=== PATIENT | male | born 2000 | race Hispanic/Latino ===

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

== ENCOUNTER 2024-10-19 22:17 | Emergency (ER) | payer SELFPAY ==
--- NOTE | 2024-10-19 22:46 | ER ---
Nurse's Notes [facility] Name: Brennon Resendiz Age: 24 yrs Sex: Male : 2000 Arrival Date: 10/19/2024 Time: 22:17 Bed 12 Private MD: Diagnosis: Insect bite (nonvenomous) of right upper arm-allergy to Presentation: 10/19 22:42 Chief complaint: Patient states: Ant bites on right arm, it is swollen and hurts to vc1 close my hand and right arm. Coronavirus screen: Client denies travel out of the [place] in the last 14 days. At this time, the client does not indicate any symptoms associated with coronavirus-19. Ebola Screen: Patient negative for fever greater than or equal to 101.5 degrees Fahrenheit, and additional compatible Ebola Virus Disease symptoms Patient denies exposure to infectious person. Patient denies travel to an Ebola-affected area in the 21 days before illness onset. No symptoms or risks identified at this time. Onset: The symptoms/episode began/occurred gradually. Anaphylaxis evaluation, no signs or symptoms of anaphylaxis were noted. Initial Sepsis Screen: Does the patient meet any 2 criteria? No. Patient's initial sepsis screen is negative. Does the patient have a suspected source of infection? No. Patient's initial sepsis screen is negative. Risk Assessment: Do you want to hurt yourself or someone else? Patient reports no desire to harm self or others. Onset of symptoms was October 19, 2024. Care prior to arrival: Medication(s) given: benadryl. 22:42 Method Of Arrival: Ambulatory vc1 22:42 Acuity: ALISON 4 vc1 Historical: - Allergies: 22:43 No Known Allergies; vc1 - Home Meds: 22:43 None [Active]; vc1 - PMHx: 22:43 None; vc1 - PSHx: 22:43 None; vc1 - Immunization history:: Client reports having NOT received the Covid vaccine. Flu vaccine is not up to date. - Infectious Disease History:: Denies. - Social history:: Smoking status: Patient denies any tobacco usage or history of. Screenin:44 [facility] ED Fall Risk Assessment (Adult) History of falling in the last 3 months, vc1 including since admission No falls in past 3 months (0 pts) Confusion or Disorientation No (0 pts) Intoxicated or Sedated No (0 pts) Impaired Gait No (0 pts) Mobility Assist Device Used No (0 pt) Altered Elimination No (0 pt) Score/Fall Risk Level 0 - 2 = Low Risk Oriented to surroundings, Maintained a safe environment, Educated pt \T\ family on fall prevention, incl call for assistance when getting out of bed, Hourly rounding (assess needs \T\ fall precautionary measures) done. Abuse screen: Denies threats or abuse. Nutritional screening: No deficits noted. Tuberculosis screening: No symptoms or risk factors identified. Assessment: 23:10 Reassessment: Patient appears in no apparent distress at this time. Pain: Denies pain. kl Respiratory: No deficits noted. Airway is patent Respiratory effort is even, unlabored, Breath sounds are clear bilaterally. Vital Signs: 22:45 BP 130 / 86; Pulse 63; Resp 14; Temp 98.7; Pulse Ox 100% ; vc1 ED Course: 22:20 Patient arrived in ED. gm2 22:28 [facility]C [facility] kb 22:28 Tarun Diamond MD is Attending Physician. kb 22:43 Triage completed. vc1 22:44 Arm band placed on right wrist. vc1 23:10 No provider procedures requiring assistance completed. Patient did not have IV access kl during this emergency room visit. Administered Medications: 22:50 Drug: Famotidine PO 20 mg PO once Route: PO; kl 22:50 Drug: Dexamethasone IM 10 mg IM once Route: IM; Site: right ventrogluteal; kl Medication: 22:44 VIS not applicable for this client. vc1 Outcome: 22:46 Discharge ordered by . kb 23:10 Patient left the ED. kl Signatures: Nurys Hanson FNP-C FNP-Ckb Lewis, Kimberly, RN RN kl Calcote, Vanessa, RN RN 1 Fidelina Devine gm2
--- NOTE | 2024-10-19 22:46 | EDPHYS ---
Physician Documentation [facility] Name: Brennon Resendiz Age: 24 yrs Sex: Male : 2000 Arrival Date: 10/19/2024 Time: 22:17 Bed 12 Private MD: ED Physician Tarun Diamond HPI: 10/19 23:30 This 24 yrs old Male presents to ER via Ambulatory with complaints of Allergic kb Reaction. 23:30 Patient is a 24-year-old male who presents for ant bites to right upper arm that kb occurred today. States the bites are itchy and painful and he noticed redness and swelling so he came for evaluation.. Historical: - Allergies: 22:43 No Known Allergies; vc1 - Home Meds: 22:43 None [Active]; vc1 - PMHx: 22:43 None; vc1 - PSHx: 22:43 None; vc1 - Immunization history:: Client reports having NOT received the Covid vaccine. Flu vaccine is not up to date. - Infectious Disease History:: Denies. - Social history:: Smoking status: Patient denies any tobacco usage or history of. ROS: 23:29 Constitutional: As per HPI kb Exam: 23:29 Constitutional: This is a well developed, well nourished patient who is awake, alert, kb and in no acute distress. Head/Face: Normocephalic, atraumatic. ENT: Moist Mucous membranes Cardiovascular: Regular rate Respiratory: Respirations even and unlabored. No increased work of breathing. Talking in full sentences MS/ Extremity: Pulses equal, no cyanosis. Neurovascular intact. Full, normal range of motion. Neuro: Awake and alert, GCS 15, oriented to person, place, time, and situation. 23:29 Skin: multiple ant bites to right upper arm with localized erythema and swelling.. Vital Signs: 22:45 BP 130 / 86; Pulse 63; Resp 14; Temp 98.7; Pulse Ox 100% ; vc1 MDM: 22:28 Medical Screening Exam initiated kb 23:29 Differential diagnosis: urticaria, abscess, cellulitis, allergy to insect bite. Data kb reviewed: vital signs, nurses notes. Counseling: I had a detailed discussion with the patient and/or guardian regarding the historical points, exam findings, and any diagnostic results supporting the discharge/admit diagnosis, the need for outpatient follow up, a family practitioner, to return to the emergency department if symptoms worsen or persist or if there are any questions or concerns that arise at home. Administered Medications: 22:50 Drug: Famotidine PO 20 mg PO once Route: PO; kl 22:50 Drug: Dexamethasone IM 10 mg IM once Route: IM; Site: right ventrogluteal; kl Disposition Summary: 10/19/24 22:46 Discharge Ordered Notes: Location: Home Condition: Stable kb Diagnosis - Insect bite (nonvenomous) of right upper arm - allergy to kb Followup: kb - With: Emergency Department - When: As needed - Reason: Worsening of condition Followup: kb - With: Private Physician - When: 2 - 3 days - Reason: Recheck today's complaints, Continuance of care, Re-evaluation by your physician Discharge Instructions: - Discharge Summary Sheet kb - Insect Bite, Adult, [id number] kb - Allergies, Adult, [id number] kb Forms: - Medication Reconciliation Form kb - Antibiotic Education kb - Prescription Opioid Use kb - Patient Portal Instructions kb - Leadership Thank You Letter kb Signatures: Nurys Hanson, [facility]-Niurka [place], RN RN Carissa Rao RN RN vc1
[2024-10-19] MEDS ORDERED: FAMOTIDINE 20 MG TAB ONE (22:48)
[2024-10-19] MEDS ORDERED: dexAMETHasone 10 MG/ML VIAL ONE (22:48)
[2024-10-19 23:21] VITALS: BP 130/86; TEMP 98.7; O2SAT 100
== END 2024-10-19 23:10 | disposition home or self-care (01) ==
LOC: ER 22:17
DX: S40.861A Insect bite (nonvenomous) of right upper arm, initial encounter (principal); Z91.038 Other insect allergy status
CPT/HCPCS: J1100